=== PATIENT | female | born 1990 | race Caucasian/White ===

== ENCOUNTER 2016-04-30 11:22 | Emergency (ER) | payer OTHER ==
[~2016-04-30] VITALS: Ht 162.6 cm; Wt 67.5 kg
[~2016-04-30 11:22] MED LIST: OMEP20CA16 PO; ONDA4TAB14 PO; RANI150T9 PO
[2016-04-30 11:25] VITALS: Ht 162.6 cm; Wt 67.5 kg
[2016-04-30] MEDS ORDERED: LIDOCAINE/MYLANTA 40 ML BTL PO STA (11:44)
[2016-04-30] MEDS ORDERED: BELLADONNA/PHENOBARBITAL TAB PO STA (11:44)
[2016-04-30 12:11] LABS: BASOPHILS % 0.6 % (0.0-2.0); EOSINOPHILS % 0.4 % (0.0-7.0); HEMATOCRIT 42.9 % (37.0-47.0); HEMOGLOBIN 14.4 g/dl (12.0-16.0); LYMPHOCYTES # 1.3 10^3/ul (0.8-2.9); LYMPHOCYTES % 18.6 % (15.0-51.0); MEAN CORPUSCULAR HEMOGLOBIN 29.6 pg (29.0-33.0); MEAN CORPUSCULAR HGB CONC 33.5 g/dl (32.0-37.0); MEAN CORPUSCULAR VOLUME 88.2 fl (82.0-101.0); MEAN PLATELET VOLUME 9.3 fl (7.4-10.4); MONOCYTE # 0.4 10^3/ul (0.3-0.9); MONOCYTES % 5.4 % (0.0-11.0); NEUTROPHIL # 5.4 10^3/ul (1.6-7.5); PLATELET COUNT 235 10^3/UL (140-440); RED BLOOD COUNT 4.86 10^6/ul (4.20-5.40); RED CELL DISTRIBUTION WIDTH 12.8 % (11.5-14.5); UNCORRECTED WBC 7.2 10^3/ul (4.8-10.8); WHITE BLOOD COUNT 7.2 10^3/ul (4.8-10.8)
[2016-04-30 12:12] LABS: ADD UMIC YES; URINE BILIRUBIN (Dip) NEGATIVE (NEGATIVE); URINE BLOOD (Dip) 3+ (NEGATIVE); URINE COLOR LT. YELLOW (YELLOW); URINE GLUCOSE (Dip) NEGATIVE (NEGATIVE); URINE KETONES (Dip) 3+ (NEGATIVE); URINE LEUKOCYTE ESTERASE (Dip) TRACE (NEGATIVE); URINE NITRITE (Dip) NEGATIVE (NEGATIVE); URINE TOTAL PROTEIN (Dip) NEGATIVE (NEGATIVE); URINE UROBILINOGEN (Dip) 0.2 E.U./dL (0.1-1.0)
[2016-04-30 12:14] LABS: CONDITION 1
[2016-04-30 12:21] LABS: ALBUMIN 4.8 g/dl (3.3-4.9)
[2016-04-30 12:22] LABS: POTASSIUM 3.7 mmol/L (3.5-5.1)
[2016-04-30 12:24] LABS: BILIRUBIN,INDIRECT 0.8 mg/dl (0-1.1); BILIRUBIN,TOTAL 0.8 mg/dl (0.2-1.3); CREATININE 0.77 mg/dl (0.44-1.00)
[2016-04-30 12:25] LABS: ALBUMIN/GLOBULIN RATIO 1.23; CALCIUM 9.5 mg/dl (8.4-10.2); TOTAL PROTEIN 8.7 g/dl (6.1-8.1)
[2016-04-30 12:26] LABS: BACTERIA,URINE OCCASIONAL
--- NOTE | 2016-04-30 12:36 | RADRPT ---
PROCEDURE: Abdominal Ultrasound (right upper quadrant). CLINICAL INDICATION: Epigastric pain TECHNIQUE: Multiple real-time longitudinal and transverse images of the right upper quadrant of th e abdomen were acquired utilizing a curved array transducer. Images were reviewed on a high-resoluti on PACS workstation. COMPARISON: None FINDINGS: The liver is normal in size and echogenicity. The portal vein is patent, and flow direction is norm al. No focal masses are identified. There is no evidence of intra or extrahepatic ductal dilatation . The common bile duct measures 2.7 mm in diameter. No gallstones or gallbladder wall thickening is seen. The visualized portions of the pancreas are unremarkable with obscuration of the tail of the pancrea s. No free fluid is identified. There is no evidence of right hydronephrosis or renal calcification. The right kidney measures 10.1 cm in length. The visualized portions of the aorta and inferior vena cava are within normal limits. IMPRESSION: 1. Unremarkable right upper quadrant ultrasound. RPTAT: KK .Vinicius Schofield MD, MD Date Time Electronically viewed and signed by .Vinicius Schofield MD, MD on 04/30/2016 12:36 .B/
[2016-04-30] MEDS ORDERED: FAMO-18 PO (12:46)
--- NOTE | 2016-04-30 14:34 | ERD ---
DATE OF SERVICE: HISTORY OF PRESENT ILLNESS: The patient is a 25-year-old female coming in complaining of epigastric pain for the last 4 days. The patient states she has a history of acid reflux, but this feels stro nger than normal. She states that she has had no vomiting. She has a burning sensation, with occas ional shortness of breath secondary to the pain. She denies any cardiac chest pain or coughing. Maxx pitt has been taking omeprazole and ranitidine for symptoms. She has had a decreased appetite secondar y to pain. No pain with urination. Last bowel movement was 2 days ago. PAST MEDICAL HISTORY: Denies medical problems. ALLERGIES: Denies allergies to medications. SURGICAL HISTORY: Denies. SOCIAL HISTORY: Denies. REVIEW OF SYSTEMS: A 12-point review of systems was done. Refer to the HPI for positives, all othe r systems are negative. PHYSICAL EXAMINATION: VITAL SIGNS: Temperature is 98, pulse 109, blood pressure is 127/55, respiratory rate 18, O2 satura tion is 99% on room air. Pain intensity is 7/10. GENERAL: The patient is well-appearing, well-nourished, in no acute distress. HEENT: Atraumatic. Conjunctivae are pink. Pupils equal, round, and reactive to light. There is no s cleral icterus. Tympanic membranes clear bilaterally. Oropharynx clear. No nystagmus or photophobia . CHEST: Clear to auscultation bilaterally. There are no rales, wheezes or rhonchi. HEART: Regular rate and rhythm. No murmurs, clicks, rubs or gallops. No S3 or S4. ABDOMEN: Questionable Lee's sign on exam. No rebound tenderness, no rigidity. Normal active selvin l sounds. BACK: No midline or flank tenderness. SKIN: There is no apparent rash or petechia. The skin is warm and dry. EMERGENCY ROOM COURSE: Blood work was done in the ER. CBC was within normal limits. CMP was withi n normal limits. The patient's urine showed trace leukocytes, 0-2 white blood cells. Gallbladder ultrasound showed an unremarkable right upper quadrant ultrasound. The patient was given a GI cockt ail in the ER and symptoms improved. DIAGNOSIS: Gastroesophageal reflux disease. MEDICAL DECISION MAKING: I have a low suspicion for cardiac abnormality. The patient's vital signs are stable. Patient is not complaining of radiating cardiac chest pain. I have a low suspicion fo r respiratory distress, hypoxia or pulmonary abnormalities. The patient's oxygen saturation is 99% on room air and exam is non-concerning. A low suspicion for nephrolithiasis, choledocholithiasis, ch olecystitis, cholangitis, or pancreatitis. The patient's liver enzymes are within normal limits. L ipase is within normal limits and there are no gallbladder wall changes noted on ultrasound. I have a low suspicion for acute abdominal etiology, as the patient does not have distention or severe pawel n and nontender to palpation of the abdomen. I did not feel a CT scan was indicated at this time. T he patient's urine did have trace leukocytes; however, I believe it is secondary to a dirty catch. I have a low suspicion for a UTI. DISCHARGE: The patient was discharged stable. The patient was given a prescription for Pepcid and told to continue taking omeprazole at home. The patient was also recommended to use TUMS and follow up with her primary care within 1-2 days for reevaluation. The patient was told if symptoms progre ss or worsen, to return to the ER. All other questions were answered at the time of discharge. Disc harge summary was given at the time of departure. The patient understood and complied with the plan. Dictated By: AILEEN SANCHEZ for MIRANDA HORNER/LINDA Conf#: [id number] DID#: [id number]
== END 2016-04-30 12:57 | disposition home or self-care (01) ==
LOC: FTE 11:22
DX: K21.9 Gastro-esophageal reflux disease without esophagitis (principal)
CPT/HCPCS: 36415; 76705; 80053; 81001; 83690; 85025; Z7502; Z7610; 81003

== ENCOUNTER 2016-05-05 14:20 | Emergency (ER) | payer OTHER ==
[~2016-05-05] VITALS: Ht 162.6 cm; Wt 66.0 kg
[~2016-05-05 14:20] MED LIST changes: +FAMO-18 PO
[2016-05-05 14:23] VITALS: Ht 162.6 cm; Wt 66.0 kg
--- NOTE | 2016-05-05 15:14 | ERD ---
ER Documentation Chief Complaint Date/Time DATE: 05/05/16 TIME: 15:09 Chief Complaint feels anxious hands - tingling sensation, facial numbness HPI This is a 25-year-old female who presents to the emergency department today complaining of feeling anxious and numbness and tingling in her hands and feet and tingling and pressure on the right side of her face. Patient states that she was driving home from the mall when she started to experience this. Patient states that she has been seen here multiple times for abdominal pain and has been told that there is nothing wrong but she is worried that there is something wrong. Patient states she has an appointment to see her primary care physician in 2 days and get referral at that time for GI specialist.. States that her primary care doctor gave her lorazepam for anxiety but she does not take the medication as she is afraid of getting addicted. Patient states that sometimes when this happens to her she also gets itchiness on her skin on her arms. Denies any nausea, blurred vision, difficulty breathing. ROS All systems reviewed and are negative except as per history of present illness. Medications Home Meds Active Scripts Famotidine* (Pepcid*) 20 Mg Tablet, 20 MG PO BID for 4 Days, #30 TAB Prov:AMPARO DENIS PA-C 04/30/16 Ondansetron (Ondansetron Odt) 4 Mg Tab.rapdis, 4 MG PO Q6H Y for NAUSEA AND/OR VOMITING, #10 TAB Prov:Vianey Perez PA-C 03/14/16 Ranitidine Hcl* (Zantac*) 150 Mg Tablet, 150 MG PO BID Y for EPIGASTRIC PAIN, # 30 TAB Prov:Vianey Perez PA-C 03/14/16 Omeprazole* (Omeprazole*) 20 Mg Capsule.dr, 20 MG PO BID, #20 Prov:Vianey Perez PA-C 03/14/16 Allergies Allergies: Coded Allergies: No Known Allergy (Unverified , 03/13/16) PMhx/Soc History of Surgery: No Anesthesia Reaction: No Hx Neurological Disorder: No Hx Respiratory Disorders: No Hx Cardiac Disorders: No Hx Psychiatric Problems: No Hx Miscellaneous Medical Probl: No Hx Alcohol Use: No Hx Substance Use: No Hx Tobacco Use: No Physical Exam Vitals Vital Signs Date Time Temp Pulse Resp B/P Pulse Ox O2 Delivery O2 Flow Rate FiO2 05/05/16 14:23 98.0 98 17 104/55 98 Physical Exam Const: talkative, NAD Head: Atraumatic Eyes: Normal Conjunctiva. PERRLA. EO and intact ENT: Normal External Ears, Nose and Mouth. Neck: Full range of motion..~ No meningismus. Resp: Clear to auscultation bilaterally Cardio: Regular rate and rhythm, no murmurs Abd: Soft, non tender, non distended. Normal bowel sounds Skin: No petechiae or rashes Back: No midline or flank tenderness Ext: No cyanosis, or edema Neur: Awake and alert. No focal neurologic deficits. No gait ataxia. Psych: Normal Mood and Affect Procedures/MDM This is a 25-year-old female who presents to emergency department today complaining of feeling at bedtime as well as numbness and tingling in her hands , feet and great face. Patient is very talkative in the exam room. She was explaining to me that she's been seen here in the emergency room several times for abdominal pain and in the past she had H. pylori and she is concerned that she has it again. Patient was asking if I was a test that we did here in the emergency department. Patient indicated that she has a appointment for a primary care physician in 2 days Her that she may follow-up in regards to the testing with her primary care doctor. Patient states that her primary care doctor did give her lorazepam for anxiety but she indicated she is afraid to take as she is afraid of becoming dependent on them. She also indicated that her primary care doctor has 1 other tests and told her that everything is okay at this time. Patient's physical exam is benign. She is very talkative in the exam room. She is afebrile and otherwise well-appearing. She has no focal neurologic deficits. She has no gait ataxia. I do not felt the patient requires a head CT or other laboratory work or imaging. Patient was not complaining of any abdominal pain at this time. No suspicion for any acute surgical abdomen, acute hemorrhage, mass, abscess, meningitis. I did obtain an EKG as patient stated that she had felt some palpitations. EKG read and interpreted by Dr. Solorzano rate [address] elevation. No QT prolongation. Normal sinus rhythm. Symptoms at this time is consistent with anxiety. Patient indicated that she does not take her home medications were anxiety she does not like to take them. Patient was okay with not being given anything here in the emergency department. I'll not discharge her home on any medication. I have instructed the patient in [place] to help manage her anxiety. I also instructed her to follow up with her primary care physician for referral to GI specialist in 2 days. I have showed the patient her EKG and patient reported feeling relief that there was nothing wrong. At this time the patient is stable for discharge and outpatient management. Patient should follow up with their PCP in the next 1-2 days. They may return to the emergency department sooner for any persistent or worsening of symptoms. Patient understood and agreed with the plan. Departure Diagnosis: Primary Impression: Anxiety Condition: Fair DAVID ROY PA-C May 05, 2016 15:14
== END 2016-05-05 15:52 | disposition home or self-care (01) ==
LOC: FTE 14:20
DX: F41.9 Anxiety disorder, unspecified (principal)
CPT/HCPCS: 93005; Z7502

== ENCOUNTER 2016-06-24 05:35 | Day surgery (SDC) | payer OTHER ==
[~2016-06-24] VITALS: Ht 162.6 cm; Wt 60.3 kg
[2016-06-24 06:42] VITALS: Ht 162.6 cm; Wt 60.3 kg
[2016-06-24] MEDS ORDERED: NO HOME MEDS (07:05)
[2016-06-24 07:06] VITALS: BP 110/60; PULSE 90; RESP 13
[2016-06-24] MEDS ORDERED: MIDAZOLAM 1 MG/ML 2 ML INJ ONE ×2 (07:45)
[2016-06-24] MEDS ORDERED: FENTAnyl 50 MCG/ML VIAL ONE (07:46)
[2016-06-24 08:18] VITALS: BP 90/60; PULSE 82; RESP 18
[2016-06-24 08:30] VITALS: BP 134/70; PULSE 134; RESP 19
--- NOTE | 2016-06-24 11:44 | GILP ---
DATE OF PROCEDURE: NAME OF PROCEDURE: Esophagogastroduodenoscopy and biopsy. SURGEON: Sandy Field MD PREOPERATIVE DIAGNOSIS: Abdominal pain. POSTOPERATIVE DIAGNOSES: 1. Gastritis. 2. Gastric mucosal biopsies were taken for Helicobacter pylori test. INDICATION FOR THE PROCEDURE: Ms. Lin Trujillo is a 25-year-old female patient who had upper abd ominal pain not responding to therapy. The patient was scheduled for endoscopic examination for fur ther evaluation. The procedure and possible complications are well explained to the patient, she understood and conse nted to the procedure. DESCRIPTION OF PROCEDURE: Under the influence of fentanyl and Versed, the gastroscope was carefully introduced into the esophagus and under direct vision, it was advanced to the stomach and through t he pylorus into the duodenal bulb and descending duodenum. FINDINGS: ESOPHAGUS: The mucosa was normal. STOMACH: The patient had gastritis. Gastric mucosal biopsies were taken for H pylori test. DUODENUM: Normal. She tolerated the procedure very well and there was no complication from the procedure. At the end of the procedure, she was awake with stable vital signs and she was discharged home to the care of h family. IMPRESSION: 1. Gastritis. 2. Gastric mucosal biopsies were taken for Helicobacter pylori test. PLAN: 1. Pantoprazole 40 mg p.o. every morning. 2. Bentyl 10 mg p.o. t.i.d. p.r.n. for pain. 3. Await H pylori test report. Dictated By: SANDY BARBA/LINDA Conf#: [id number] DID#: [id number]
--- NOTE | 2016-06-25 12:02 | CONS ---
DATE OF ADMISSION: 06/24/2016 DATE OF CONSULTATION: TYPE OF CONSULTATION: Preoperative gastroenterology. Dear Dr. Bay: I thank you very much for this kind referral. Ms. Lin Trujillo is a 25-year-old female patient who has been referred to me for further evaluation of upper abdominal pain, not responding to therap y. The patient tried medications with omeprazole and Pepcid without any relief. There is no defini te past history of peptic ulcer disease. The patient is status post antibiotic therapy for H. pylor i infection. Her appetite has been poor and she states that she has been losing weight. There is n o history of gallstones. She does not have any fever, chills or jaundice. There is no history of l iver disease. She had abdominal ultrasound and it was negative. She denies any change in the bowel habit or rectal bleeding. There is no past history of inflammatory bowel disease. She is not hype rtensive or diabetic. She does not have any heart disease or lung problem. There is no history of kidney disease. She is on control pill. She is a nonsmoker. She does not abuse alcohol. FAMILY HISTORY: Negative for gastrointestinal tract neoplasm and inflammatory bowel disease. ALLERGIES: THERE IS NO HISTORY OF SIGNIFICANT DRUG ALLERGY. MEDICATIONS: control pill. PHYSICAL EXAMINATION GENERAL: She is 5 feet 4 inches tall and she weighs 135 pounds. HEART: Examination of the heart reveals normal first and second heart sounds. LUNGS: Clear. ABDOMEN: Soft without any distention. Liver and spleen are not palpable. There are no masses. Th ere is no focal tenderness. Normal bowel sounds are heard. CENTRAL NERVOUS SYSTEM: Does not reveal any focal neurological deficit. IMPRESSION: 1. Upper abdominal pain, not responding to therapy. 2. Status post antibiotic therapy for Helicobacter pylori infection. 3. Weight loss. 4. The patient had abdominal ultrasound and it is negative. 5. The patient is on control pill. PLAN: 1. Stool for H. pylori antigen. 2. Stool for ova and parasites. 3. Endoscopic examination for further evaluation. The procedure and possible complications are well explained to the patient. She understands and con sents to the procedure. I thank you once again. With warmest personal regards, Dictated By: SANDY BARBA/LINDA Conf#: [id number] [facility]#: [id number]
== END 2016-06-24 08:52 | disposition home or self-care (01) ==
LOC: GIL 05:35
PROVIDERS: ATTEND Internal Medicine Gastroenterology
DX: K29.70 Gastritis, unspecified, without bleeding (principal)
CPT/HCPCS: 43239; 87081; J2250; J3010; Z7610

== ENCOUNTER 2016-07-06 10:05 | Emergency (ER) | payer OTHER ==
[~2016-07-06] VITALS: Wt 58.1 kg
[~2016-07-06 10:05] MED LIST changes: -FAMO-18 PO; +NO HOME MEDS; -OMEP20CA16 PO; -ONDA4TAB14 PO; -RANI150T9 PO
[2016-07-06 12:34] LABS: ADD SCAN DIFF NO
[2016-07-06 12:38] LABS: BASOPHILS % 0.3 % (0.0-2.0); EOSINOPHILS % 0.2 % (0.0-7.0); HEMATOCRIT 40.5 % (37.0-47.0); HEMOGLOBIN 13.8 g/dl (12.0-16.0); LYMPHOCYTES # 1.4 10^3/ul (0.8-2.9); LYMPHOCYTES % 16.4 % (15.0-51.0); MEAN CORPUSCULAR HGB CONC 34.1 g/dl (32.0-37.0); MEAN PLATELET VOLUME 11.7 fl (7.4-10.4); MONOCYTE # 0.5 10^3/ul (0.3-0.9); MONOCYTES % 5.7 % (0.0-11.0); NEUTROPHIL # 6.7 10^3/ul (1.6-7.5); NEUTROPHILS % 77.2 % (39.0-77.0); PLATELET COUNT 225 10^3/UL (140-415); RED CELL DISTRIBUTION WIDTH 13.1 % (11.5-14.5); WHITE BLOOD COUNT 8.7 10^3/ul (4.8-10.8)
--- NOTE | 2016-07-06 12:38 | ERD ---
ER Documentation Chief Complaint Date/Time DATE: 07/06/16 TIME: 12:36 Chief Complaint ENDOSCOPY S/P 2 WKS AGO. NOW HAS SORE THROAT AND COUGH AND CONGESTION HPI 25-year-old female presents with sore throat, cough and congestion that started yesterday, she was concerned because she had an endoscopy about a week and a half ago secondary to history of gastritis. She also states this morning she had an episode of dizziness, she felt nauseous. She denies chest pain, abdominal pain. ROS All systems reviewed and are negative except as per history of present illness. Medications Home Meds Active Scripts Fluticasone Propionate (Flonase Allergy Relief) 9.9 Ml Gering.susp, 1 SPRAY NASAL BID, #1 BOTTLE TO EACH NOSTRIL Prov:CHARLEE COLLADO PA-C 07/06/16 Cetirizine Hcl* (Cetirizine Hcl*) 5 Mg/5 Ml Solution, 2 TSP PO DAILY, #150 ML Prov:CHARLEE COLLADO PA-C 07/06/16 Reported Medications [No Home Meds] No Conflict Check 06/24/16 Allergies Allergies: Coded Allergies: No Known Allergy (Unverified , 07/06/16) PMhx/Soc Medical and Surgical Hx: pt denies Surgical Hx History of Surgery: No Anesthesia Reaction: No Hx Neurological Disorder: No Hx Respiratory Disorders: No Hx Cardiac Disorders: No Hx Psychiatric Problems: No Hx Miscellaneous Medical Probl: Yes (GASTRITIS, ENDOSCOPY 10 DAYS AGO) Hx Alcohol Use: No Hx Substance Use: No Hx Tobacco Use: No Smoking Status: Never smoker Physical Exam Vitals Vital Signs Date Time Temp Pulse Resp B/P Pulse Ox O2 Delivery O2 Flow Rate FiO2 07/06/16 10:08 97.9 97 21 100/52 100 Physical Exam General: Well-developed, well-nourished. The patient appears in no acute distress. HEENT: Head is normocephalic, atraumatic. No scleral icterus. Pupils are equal , round, and reactive. Oral mucous membranes are moist. No pharyngeal erythema. Neck: Supple. Nontender. Lungs: Clear to auscultation. Normal air movement. Heart: Regular rate and rhythm. S1 and S2 are normal. No murmurs, gallops, or rubs. Abdomen: Soft, nontender, nondistended. Bowel sounds are normoactive. Extremities: No clubbing or cyanosis. Normal pulses. Moving extremities x 4. No weakness. Neurologic: Alert and oriented 3. No focal deficits. Skin: Normal turgor. No rash or lesions. Result Diagram: 07/06/16 1231 07/06/16 1231 Results 24 hrs Laboratory Tests Test 07/06/16 12:31 Alanine Aminotransferase (ALT/SGPT) 25IU/L Albumin 4.6g/dl Albumin/Globulin Ratio 1.48 Alkaline Phosphatase 65IU/L Anion Gap 24 Aspartate Amino Transf (AST/SGOT) 22IU/L Basophils # 0.010^3/ul Basophils % 0.3% Blood Urea Nitrogen 9mg/dl Calcium Level 9.7mg/dl Carbon Dioxide Level 23mmol/L Chloride Level 101mmol/L Creatinine 0.64mg/dl Direct Bilirubin 0.00mg/dl Eosinophils # 0.010^3/ul Eosinophils % 0.2% Globulin 3.10g/dl Glucose Level 73mg/dl Hematocrit 40.5% Hemoglobin 13.8g/dl Indirect Bilirubin 1.1mg/dl Lymphocytes # 1.410^3/ul Lymphocytes % 16.4% Mean Corpuscular Hemoglobin 30.0pg Mean Corpuscular Hemoglobin Concent 34.1g/dl Mean Corpuscular Volume 88.0fl Mean Platelet Volume 11.7fl Monocytes # 0.510^3/ul Monocytes % 5.7% Neutrophils # 6.710^3/ul Neutrophils % 77.2% Nucleated Red Blood Cells # 0.010^3/ul Nucleated Red Blood Cells % 0.0/100WBC Platelet Count 99080^3/UL Potassium Level 4.2mmol/L Red Blood Count 4.6010^6/ul Red Cell Distribution Width 13.1% Sodium Level 144mmol/L Total Bilirubin 1.1mg/dl Total Protein 7.7g/dl Urine Bacteria MODERATE Urine Bilirubin NEGATIVE Urine Clarity CLEAR Urine Color LT. YELLOW Urine Glucose NEGATIVE% Urine Hemoglobin NEGATIVE Urine Ketones 3+ Urine Leukocyte Esterase 1+ Urine Microscopic RBC NONE SEEN/HPF Urine Microscopic WBC 2-5/HPF Urine Nitrite NEGATIVE Urine Specific Thelma 1.025 Urine Squamous Epithelial Cells FEW Urine Total Protein TRACE Urine Urobilinogen 0.2 E.U./dL Urine Yeast FEW Urine pH 6.0 White Blood Count 8.710^3/ul PROCEDURE: Chest Radiograph. CLINICAL INDICATION: Congestion TECHNIQUE: Single frontal chest radiograph. COMPARISON: None available FINDINGS: The cardiomediastinal silhouette is within normal limits. No infiltrate or effusion is seen. The bones are intact. IMPRESSION: 1. Unremarkable chest radiograph. RPTAT: HJBF .Vinicius Schofield MD, Date Time Electronically viewed and signed by .Vinicius Schofield MD, on 2016 12:57 .B/ Procedures/MDM ED course: 12-lead EKG(interpreted by supervising physician): Rate/Rhythm: Normal Sinus Rhythm, rate of 91 QRS, ST, T-waves: No changes consistent w/ acute ischemia, no intervals, no dysrhythmias, no ectopy Impression: No evidence of ischemia or arrhythmia MDM: 25 year old female comes in with sore throat, and congestion. She states she has had URI symptoms and states she felt dizzy today and requested lab work. No signs of bleeding, endoscopy was done over a week and a half ago and this is unlikely related to her symptoms. Chest x-ray is normal. No signs of any anemia, electrolyte abnormalities. She does not have any dysuria, urgency or frequency complaints, urine is likely dirty catch. Departure Diagnosis: Primary Impression: Sore throat Additional Impression: Dizziness Condition: Good CHARLEE COLLADO PA-C Jul 06, 2016 12:37
--- NOTE | 2016-07-06 12:57 | RADRPT ---
PROCEDURE: Chest Radiograph. CLINICAL INDICATION: Congestion TECHNIQUE: Single frontal chest radiograph. COMPARISON: None available FINDINGS: The cardiomediastinal silhouette is within normal limits. No infiltrate or effusion is seen. Th e bones are intact. IMPRESSION: 1. Unremarkable chest radiograph. RPTAT: HJBF .Vinicius Schofield MD, MD Date Time Electronically viewed and signed by .Vinicius Schofield MD, on 07/06/2016 12:57 .B/
[2016-07-06 13:02] LABS: ALBUMIN 4.6 g/dl (3.3-4.9)
[2016-07-06 13:03] LABS: POTASSIUM 4.2 mmol/L (3.5-5.1)
[2016-07-06 13:05] LABS: ALBUMIN/GLOBULIN RATIO 1.48; BILIRUBIN,INDIRECT 1.1 mg/dl (0-1.1); BILIRUBIN,TOTAL 1.1 mg/dl (0.2-1.3); CREATININE 0.64 mg/dl (0.44-1.00); TOTAL PROTEIN 7.7 g/dl (6.1-8.1)
[2016-07-06 13:06] LABS: ADD UMIC YES; CALCIUM 9.7 mg/dl (8.4-10.2); URINE BILIRUBIN (Dip) NEGATIVE (NEGATIVE); URINE BLOOD (Dip) NEGATIVE (NEGATIVE); URINE COLOR LT. YELLOW (YELLOW); URINE GLUCOSE (Dip) NEGATIVE (NEGATIVE); URINE KETONES (Dip) 3+ (NEGATIVE); URINE LEUKOCYTE ESTERASE (Dip) 1+ (NEGATIVE); URINE NITRITE (Dip) NEGATIVE (NEGATIVE); URINE TOTAL PROTEIN (Dip) TRACE (NEGATIVE); URINE UROBILINOGEN (Dip) 0.2 E.U./dL (0.1-1.0)
[2016-07-06 13:27] LABS: BACTERIA,URINE MODERATE; SQUAMOUS EPITHELIAL CELL,UR FEW; URINE RBCS NONE SEEN /HPF (0)
[2016-07-06] MEDS ORDERED: CETI5SOL PO (13:45)
[2016-07-06] MEDS ORDERED: FLUT9.9S NASAL (13:45)
== END 2016-07-06 14:18 | disposition home or self-care (01) ==
LOC: FTE 10:05
DX: J02.9 Acute pharyngitis, unspecified (principal); R42 Dizziness and giddiness
CPT/HCPCS: 71010; 80053; 81001; 85025; 93005; Z7502; 81003

== ENCOUNTER 2016-12-09 11:52 | Emergency (ER) | END 2016-12-09 13:54 | disposition home or self-care (01) | DX: K21.9 Gastro-esophageal reflux disease without esophagitis (principal); N39.0 Urinary tract infection, site not specified | CPT/HCPCS: Z7502; Z7610 ==